=== PATIENT | female | born 1965 | race Caucasian/White ===

== ENCOUNTER 2020-12-12 08:43 | Outpatient (CLI) | payer OTHER | END 2020-12-12 14:00 | disposition home or self-care (01) | LOC: SUS 08:43 | PROVIDERS: ATTEND General Practice | DX: E04.1 Nontoxic single thyroid nodule (principal) | CPT/HCPCS: 10022; 88108; 88172; 88173; 88305 ==

== ENCOUNTER 2023-02-16 07:59 | Day surgery (SDC) | payer OTHER ==
[~2023-02-16] VITALS: Ht 167.6 cm; Wt 86.2 kg
[2023-02-16 08:53] VITALS: O2SAT 98
[2023-02-16] MEDS ORDERED: BENZOCAINE 20% 0.5mL UD SPRAY MM ONE (09:16)
[2023-02-16] MEDS ORDERED: MIDAZOLAM HCL 5 MG/5 ML VIAL ONE (09:16)
[2023-02-16] MEDS ORDERED: MEPERIDINE 100 MG INJ. 100 MG/ML VIAL ONE (09:16)
[2023-02-17 16:29] VITALS: BP_SYST 124; PULSE 73; RESP 19
== END 2023-02-16 10:50 | disposition home or self-care (01) ==
LOC: SDS 07:59 → SMU 08:01 → SDS 10:50
PROVIDERS: ATTEND Internal Medicine
DX: Z12.11 Encounter for screening for malignant neoplasm of colon (principal); K57.30 Diverticulosis of large intestine without perforation or abscess without bleeding; K29.50 Unspecified chronic gastritis without bleeding; K64.8 Other hemorrhoids; R13.10 Dysphagia, unspecified; E11.9 Type 2 diabetes mellitus without complications; Z79.899 Other long term (current) drug therapy
CPT/HCPCS: 45378; 43248; 43239; 82962; 88305; 88312; 88313; 99152; 99153; G0378; J2250; J2175; C1769

== ENCOUNTER 2023-10-19 10:48 | Outpatient (CLI) | payer OTHER ==
[2023-10-19 11:38] LABS: BASOPHILS # (AUTO) 0.1 K/uL (0.0-0.2); BASOPHILS % (AUTO) 0.7 % (0.0-2.0); EOSINOPHILS # (AUTO) 0.1 K/uL (0.0-0.4); EOSINOPHILS % (AUTO) 0.9 % (0.0-4.0); LYMPHOCYTES % (AUTO) 27.9 % (20.5-51.5); MEAN CORPUSCULAR HEMOGLOBIN 31 pg (27-31); MEAN CORPUSCULAR HGB CONC 34 % (32-36); MEAN CORPUSCULAR VOLUME 91 fL (79.0-98.0); MONOCYTES # (AUTO) 0.4 K/uL (0.0-1.0); MONOCYTES % (AUTO) 5.8 % (1.7-9.3); NEUTROPHILS # (AUTO) 4.6 K/uL (1.8-7.7); NEUTROPHILS % (AUTO) 64.7 % (40.0-70.0); PLATELET COUNT (AUTO) 216 K/uL (130-430); RED BLOOD CELL COUNT(AUTO) 4.53 MIL/uL (4.2-6.2); RED CELL DISTRIBUTION WIDTH 13.4 % (9.0-15.0); WHITE BLOOD COUNT (AUTO) 7.1 K/uL (4.8-10.8)
[2023-10-19 11:44] LABS: INR 0.9 (0.8-1.2); PROTHROMBIN TIME 9.7 SECS (9.5-12.5)
[2023-10-19 11:58] LABS: TOTAL PROTEIN, SERUM 7.7 g/dL (6.4-8.3)
[2023-10-19 12:58] LABS: ALBUMIN 3.7 g/dL (3.4-4.8); CALCIUM 8.3 mg/dL (8.4-11.0); CREATININE 0.62 mg/dL (0.55-1.30); POTASSIUM 4.3 mmol/L (3.5-5.1); TOTAL BILIRUBIN 0.7 mg/dL (0.0-1.0)
== END 2023-10-19 20:47 | disposition home or self-care (01) ==
LOC: SLB 10:48
PROVIDERS: ATTEND General Practice
DX: Z01.419 Encounter for gynecological examination (general) (routine) without abnormal findings (principal); E04.1 Nontoxic single thyroid nodule; E55.9 Vitamin D deficiency, unspecified; E11.9 Type 2 diabetes mellitus without complications; E78.2 Mixed hyperlipidemia; E88.819 Insulin resistance, unspecified; R13.19 Other dysphagia; Z78.0 Asymptomatic menopausal state
CPT/HCPCS: 36415; 80053; 85025; 85610; 85730

== ENCOUNTER 2023-10-20 09:38 | Outpatient (CLI) | payer OTHER ==
[2023-10-20] MEDS ORDERED: LIDOCAINE 1%, 20 ML MDV 20 ML ONE (09:58)
== END 2023-10-20 18:08 | disposition home or self-care (01) ==
LOC: SUS 09:38 → EDSTATUS 10:00 → SUS 18:08
PROVIDERS: ATTEND General Practice
DX: E04.1 Nontoxic single thyroid nodule (principal)
CPT/HCPCS: 88160; 88305; 88307; J2001